=== PATIENT | female | born 1950 | race Caucasian/White ===

== ENCOUNTER → 2021-05-24 | Outpatient (CLI) | payer MEDICARE, OTHER ==
--- NOTE | 2021-05-24 17:33 | Diagnostic Imaging Report ---
INDICATION: Low back pain. TIME OF EXAM: 2:52 PM Three views of the lumbar spine were obtained. Curvature and alignment is normal. Vertebral body heights are maintained. No acute compression fracture is seen. There is some generalized degenerative disc disease with variable disc space narrowing and marginal spurring. There appears to be lower lumbar facet arthropathy. IMPRESSION: Lumbar spondylosis. No acute bony abnormality is detected. Dictated by: Dictated on workstation # [id number]
== END ==
LOC: ORTHO 13:45
PROVIDERS: ATTEND Orthopaedic Surgery
DX: M47.816 Spondylosis without myelopathy or radiculopathy, lumbar region (principal)
CPT/HCPCS: 20610; 72100; G0463

== ENCOUNTER → 2021-10-20 | Outpatient (CLI) | payer MEDICARE, OTHER | LOC: ORTHO 10:48 | PROVIDERS: ATTEND Orthopaedic Surgery | DX: M17.12 Unilateral primary osteoarthritis, left knee (principal) | CPT/HCPCS: 20610 ==

== ENCOUNTER → 2022-02-21 | Outpatient (CLI) | payer MEDICARE, OTHER ==
--- NOTE | 2022-02-21 09:27 | Diagnostic Imaging Report ---
INDICATION: Bilateral hip pain. TIME OF EXAM: 9:12 AM. TECHNIQUE: An AP view of the pelvis and two views of each hip were obtained. FINDINGS: The femoroacetabular alignment appears to be normal bilaterally. The joint spaces are well-maintained. Both femoral heads and necks are intact. The rami are intact. No fractures are seen. IMPRESSION: No acute abnormality is detected. Dictated by: Dictated on workstation # [id number]
== END ==
LOC: ORTHO 08:51
PROVIDERS: ATTEND Orthopaedic Surgery
DX: M25.551 Pain in right hip (principal); M25.552 Pain in left hip
CPT/HCPCS: 73523; G0463; 99213

== ENCOUNTER → 2022-03-09 | Outpatient (CLI) | payer MEDICARE, OTHER ==
--- NOTE | 2022-03-09 14:12 | Diagnostic Imaging Report ---
Clinical indications: With joint pain. Patient has stiffness when walking and low back pain. Patient has history of nasopharyngeal cancer. EXAM: MRI of the lumbar spine performed without IV contrast. Sequences include sagittal T2, sagittal T1, sagittal T2 fat-sat, coronal T2, and axial T2. There is no acute lumbar spine fracture or dislocation. 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 There are small spurs involving the lumbar spine anteriorly. The visualized portions of the distal thoracic spinal cord, conus medullaris, and cauda equina nerve roots are unremarkable. The conus medullaris tip is seen at the upper L2 vertebral body level. There is no significant paraspinal soft tissue abnormality. Prominent bilateral renal pelvis noted with normal diameter ureters. There also appear to be possible left parapelvic cyst. There is a 12 mm circumscribed low T2 signal area involving the inferior aspect right kidney which is indeterminate. T12-L1 and L1-L2: Unremarkable. L2-L3: There is mild left facet arthropathy. There is no significant central spinal canal or neural foramen narrowing. L3-L4: There is a mild diffuse disk bulge with mild loss of disk space height posteriorly. There is moderate bilateral facet arthropathy. There is no significant central canal stenosis. There is mild right neural foramen narrowing and no significant left neural foramen narrowing. L4-L5: There is diffuse disk bulge with mild to moderate loss of disk space height most pronounced posteriorly. There is moderate bilateral facet arthropathy. There is mild central canal stenosis, and mild to moderate bilateral neural foramen narrowing. L5-S1: There is a mild diffuse disk bulge and a moderate loss of disk space height posteriorly. There is severe right facet arthropathy/hypertrophy and mild left facet arthropathy. There is no significant central canal stenosis or neural foramen narrowing. IMPRESSION: 1: There is no acute lumbar spine fracture or dislocation. 2: There is mild to moderate lumbar spine degenerative disease most pronounced at the L4-L5 level. There is no major central canal stenosis. There is mild to moderate bilateral neural foramen narrowing. 3: There is a 12 mm circumscribed low T2 signal area involving the inferior aspect the right kidney which is indeterminate. Renal ultrasound is suggested for further evaluation. 4: There is prominence of the bilateral renal pelvis disease with normal sized ureters which may be related to prominent extrarenal pelvis or component of UPJ obstruction (right side more than the left). This also would be better evaluated with renal ultrasound. Dictated by: Dictated on workstation # [id number]
== END ==
LOC: RAD 08:45
PROVIDERS: ATTEND Orthopaedic Surgery
DX: M47.896 Other spondylosis, lumbar region (principal); M48.061 Spinal stenosis, lumbar region without neurogenic claudication; N28.9 Disorder of kidney and ureter, unspecified
CPT/HCPCS: 72148

== ENCOUNTER → 2022-04-20 | Outpatient (CLI) | payer MEDICARE, OTHER ==
--- NOTE | 2022-04-20 17:40 | Diagnostic Imaging Report ---
INDICATION: Bilateral knee pain. EXAMINATION: AP, lateral and oblique and sunrise views of both knees were obtained. No fracture or acute bony abnormality is seen. On the left side, there is marked medial joint space narrowing with subchondral sclerosis and osteophyte formation. The lateral compartment appears preserved. There is moderate patellofemoral spurring and joint space narrowing. On the right side, there is moderate medial joint space narrowing with osteophyte formation. Lateral compartment appears preserved. Patellofemoral compartment appears preserved. IMPRESSION: Degenerative findings of both knees, left worse than right, findings are most prominent in the medial compartments. No acute abnormality. Dictated by: Dictated on workstation # [id number]
== END ==
LOC: ORTHO 11:21
PROVIDERS: ATTEND Orthopaedic Surgery
DX: M17.0 Bilateral primary osteoarthritis of knee (principal)
CPT/HCPCS: 73564; G0463; 99213

== ENCOUNTER → 2022-07-19 | Outpatient (CLI) | payer MEDICARE, OTHER | LOC: ORTHO 08:58 | PROVIDERS: ATTEND Orthopaedic Surgery | DX: M17.0 Bilateral primary osteoarthritis of knee (principal) ==

== ENCOUNTER → 2022-10-19 | Outpatient (CLI) | payer MEDICARE, OTHER | LOC: ORTHO 11:26 | PROVIDERS: ATTEND Orthopaedic Surgery | DX: M17.0 Bilateral primary osteoarthritis of knee (principal) | CPT/HCPCS: 20610 ==

== ENCOUNTER 2022-11-07 11:59 | Outpatient (CLI) | payer MEDICARE, OTHER ==
[~2022-11-07] VITALS: Ht 165.1 cm; Wt 71.6 kg
--- NOTE | 2022-11-07 13:37 | Diagnostic Imaging Report ---
CLINICAL INDICATION: Preop testing. EXAM: Chest x-ray PA and lateral views. COMPARISON: None. FINDINGS: Lungs/pleura: There is minimal atelectasis and/or scarring involving both lung bases. Lungs are clear. There is no pneumothorax. There is no pleural effusion. Mediastinum: There are calcified lymph nodes in the mediastinal region.. Pulmonary vasculature: Unremarkable. Heart: Unremarkable. Bones/extrathoracic soft tissue: There are hypertrophic spurs involving the thoracic spine. There is extensive kyphosis of the thoracic spine. IMPRESSION: There is no radiographic evidence of acute cardiopulmonary process. There is minimal bibasilar atelectasis or scarring. Dictated by: Dictated on workstation # [id number]
[2022-11-07] MEDS ORDERED: CLOT15CR6 TP (16:13)
[2022-11-07] MEDS ORDERED: FOLI0.4T6 PO (16:13)
[2022-11-07] MEDS ORDERED: VITAMIN B COMP PO (16:13)
[2022-11-07] MEDS ORDERED: ACET325C7 PO (16:13)
[2022-11-07] MEDS ORDERED: D-MA500C PO (16:13)
[2022-11-07] MEDS ORDERED: VITA100C23 PO (16:13)
[2022-11-07] MEDS ORDERED: MUPI15CR11 TP (16:13)
[2022-11-07] MEDS ORDERED: LEVO75CA5 PO (16:13)
[2022-11-07] MEDS ORDERED: CALC1CAP9 PO (16:13)
[2022-11-07] MEDS ORDERED: ASCO100025 PO (16:13)
[2022-11-07] MEDS ORDERED: OMEP40CA6 PO (16:13)
[2022-11-07] MEDS ORDERED: MULT-568 PO (16:13)
[2022-11-07] MEDS ORDERED: TURM500T PO (16:13)
[2022-11-07] MEDS ORDERED: LACT1CAP74 PO (16:13)
[2022-11-07] MEDS ORDERED: CHOL500049 PO (16:13)
[2022-11-07] MEDS ORDERED: KETO15CR2 TP (16:13)
[2022-11-07] MEDS ORDERED: ACHD5005 PO (16:13)
[2022-11-07] MEDS ORDERED: CART1TAB4 PO (16:13)
[2022-11-07] MEDS ORDERED: SODI100P15 DT (16:13)
[2022-11-07] MEDS ORDERED: MAGN200T8 PO (16:13)
== END 2022-11-07 16:15 ==
LOC: PREOP 11:59
PROVIDERS: ATTEND Orthopaedic Surgery
DX: Z01.818 Encounter for other preprocedural examination (principal); M17.12 Unilateral primary osteoarthritis, left knee
CPT/HCPCS: 71046; 93005

== ENCOUNTER → 2022-11-07 | Outpatient (CLI) | payer MEDICARE, OTHER ==
[~2022-11-07] MED LIST: ACET325C7 PO; ACHD5005 PO; ASCO100025 PO; CALC1CAP9 PO; CART1TAB4 PO; CHOL500049 PO; CLOT15CR6 TP; D-MA500C PO; FOLI0.4T6 PO; KETO15CR2 TP; LACT1CAP74 PO; LEVO75CA5 PO; MAGN200T8 PO; MULT-568 PO; MUPI15CR11 TP; OMEP40CA6 PO; SODI100P15 DT; TURM500T PO; VITA100C23 PO; VITAMIN B COMP PO
[2022-11-07 11:55] LABS: BILIRUBIN,URINE NEGATIVE (NEGATIVE); CLARITY,URINE CLEAR; COLOR,URINE YELLOW; GLUCOSE, URINE (UA) NEGATIVE (NEGATIVE); KETONES,URINE NEGATIVE (NEGATIVE); LEUKOCYTE ESTERASE ,URINE TRACE (NEGATIVE); NITRITE,URINE NEGATIVE (NEGATIVE); PH,URINE 7.5 (5-9); PROTEIN,URINE NEGATIVE (NEGATIVE)
[2022-11-07 12:03] LABS: RBC,URINE RARE /HPF
[2022-11-07 12:04] LABS: BACTERIA,URINE TRACE /HPF; HYALINE CASTS, URINE RARE /LPF; SQUAMOUS EPITHELIAL CELL,UR 0-2 /HPF; WBC,URINE 0-2 /HPF
[2022-11-07 12:17] LABS: POTASSIUM 3.9 MMOL/L (3.6-5.0)
--- NOTE | 2022-11-07 13:36 | Diagnostic Imaging Report ---
PROCEDURE: CT left lower extremity without contrast. TECHNIQUE: Multiple contiguous axial images were obtained through the left lower extremity without the use of intravenous contrast. Sagittal and coronal reformations were then performed. Auto Exposure Controls were utilized during the CT exam to meet ALARA standards for radiation dose reduction. INDICATION: Left knee pain COMPARISON: Radiograph from 04/20/2022 FINDINGS: No acute fracture is seen in the left knee. Alignment appears normal. There is severe degenerative change in the medial compartment and in the patellofemoral compartment. There are mild degenerative changes in the lateral compartment. There is a small left knee joint effusion. No muscular atrophy is seen. No acute abnormalities seen in the left ankle. No acute abnormalities seen in the left hip. IMPRESSION: 1. Tricompartmental degenerative changes in the left knee, most pronounced in the medial and patellofemoral compartments. 2. Small left knee joint effusion. Dictated by: Dictated on workstation # [id number]
== END ==
LOC: RAD 11:28
PROVIDERS: ATTEND Orthopaedic Surgery
DX: Z01.89 Encounter for other specified special examinations (principal); M17.0 Bilateral primary osteoarthritis of knee
CPT/HCPCS: 36415; 71046; 73700; 80048; 81000

== ENCOUNTER → 2022-11-07 | Outpatient (CLI) | payer MEDICARE, OTHER | LOC: ORTHO 10:58 | PROVIDERS: ATTEND Orthopaedic Surgery | DX: M17.0 Bilateral primary osteoarthritis of knee (principal) ==

== ENCOUNTER 2022-11-20 06:24 | Day surgery (SDC) | payer MEDICARE, OTHER ==
[2022-11-20] VITALS (10 sets, daily range): BP systolic 133–155; BP diastolic 63–93
[~2022-11-20] VITALS: Ht 165.1 cm; Wt 71.6 kg
[2022-11-20] MEDS ORDERED: ROPIVACAINE 5MG/ML 30ML VIAL ONE (06:43)
[2022-11-20] MEDS ORDERED: LIDOCAINE PF 2% 5 ML (XYLOCAINE) VIAL ONE (06:44)
[2022-11-20] MEDS ORDERED: MIDAZOLAM 2 MG/2 ML (VERSED) VIAL ONE (06:44)
[2022-11-20] MEDS: LACTATED RINGERS 1,000 ML IV PRN ×2 (06:57→09:45)
[2022-11-20] MEDS ORDERED: CLINDAMYCIN 600 MG/50 ML IVPB 50 ML IV ONE ×2 (07:00→07:03)
--- NOTE | 2022-11-20 07:13 | Progress Note-Pre Operative ---
Pre-Operative Progress Note Date of Available H&P: Nov 07, 2022 Date H&P Reviewed: Nov 20, 2022 Time H&P Reviewed: 07:05 History & Physical: H&P Reviewed, Patient Examed, No changes noted Pre-Operative Diagnosis: Left Knee Primary Osteoarthritis ROBBIE KLEIN MD Nov 20, 2022 07:13
[2022-11-20] MEDS ORDERED: CATHETER FLUSH 10 ML SYR IVP PRN (07:15)
[2022-11-20] MEDS ORDERED: fentaNYL INJ 100 MCG/2 ML AMP ONE (07:52)
[2022-11-20] MEDS ORDERED: proPOfol 200 MG/20 ML (DIPRIVAN) VIAL IV ONE (07:52)
[2022-11-20] MEDS ORDERED: KETOROLAC 30 MG/ML VIAL ONE (10:41)
[2022-11-20] MEDS ORDERED: SEVOFLURANE (ULTANE) 15 ML INHAL SOLN ONE (10:42)
[2022-11-20] MEDS ORDERED: ONDANSETRON 4 MG/2 ML (SDV) Z0FRAN ONE (10:48)
--- NOTE | 2022-11-20 10:57 | Operative Report - Ortho ---
Operative Report Surgeon (s)/Client Program Manager (s) Surgeon ROBBIE KLEIN MD Client Program Manager n/a Pre-Operative Diagnosis Left Knee Primary Osteoarthritis Post-Operative Diagnosis same Operative Report Date of Procedure: Nov 20, 2022 Name of Procedure Performed: Robotic Assisted Left Total Knee Arthroplasty Description & Findings After obtaining informed consent and marking the patient in the preoperative holding area, the patient did receive IV antibiotics. Patient was taken to the operating room and anesthesia was induced. Surgical timeout was taken. The left lower extremity was prepped and draped in the usual sterile fashion. Incision was made and carried down to fascia. Arthrotomy was performed on the medial side of the patella. Patella was retracted laterally and knee was flexed. Found to have circumferential osteophtye around the distal femur as well as exposed bone in the medial compartment. ACL and anterior horns of the menisci were removed. 3.2 mm pins were placed in the medial femoral condyle for the femoral array and checkpoint was placed next to the pins. 3.2 mm pins were placed in the proximal tibia and checkpoint was placed there as well. Arrays were placed and tightened into position. The femur and tibia were then registered. Osteophytes were removed. The knee was then tensioned with varus and valgus stress in extension and flexion. Measurements were captured and adjustments were made to the preoperative plan to balance the flexion and extension gaps at 19 mm. Robotic arm was brought into position and all femoral cuts as well as the tibial cut were performed. Bone blocks were removed. Lamina locator was placed and the remainder of the mensici as well as posterior osteophytes were removed. The knee was trialed with a size 2 femur and a size 2 tibia with a 9 mm poly trial. It was found to come out to full extension and flexed beyond 120 degrees. It was stable to varus and valgus stress throughout its range of motion. This was accepted. Knee was brought out into extension and the patella was measured at less than 20 mm of thickness. Osteophytes were removed from around the perimeter of the patella. Patella tracked well through the trochlear groove of the femur. Lug holes were drilled in the distal femur. Trial implants were removed. Tibial tray was pinned and punched. Tibial press fit guide was placed and holes were drilled. The cut bone surfaces were lavaged with pulsatile normal saline. Implants were opened and assembled on the back table. A size 2 press fit tibial component was impacted into place. A size 2 press fit femoral component was impacted into place. Tibial tray was lavaged with saline. A 9 mm thick polyethylene component was locked into placed and the locking mechanism was checked. Knee was brought into extension. Betadine soak was performed and then, the knee was irrigated with normal saline. The knee was once again trialed; found to come to full extension, flexed beyond 120 degrees, and was stable to varus and valgus stress. Tourniquet was dropped and electrocautery was used for hemostasis. Fascial layer was closed with #2 Stratafix. The subcutaneous layer was closed with 2-0 Vicryl. The skin was closed with adriana. Wound was dressed with xeroform, 4x4s, ABD, webril, and USMAN wrap. Patient tolerated the procedure well and was stable to the recovery room. Anesthesia Type General Estimated Blood Loss 150 mL Specimen(s) collected/removed None ROBBIE KLEIN MD Nov 20, 2022 10:57
[2022-11-20] MEDS ORDERED: KETOCONAZOLE 2% CREAM 15 GM (NIZORAL) TP SCH (11:00)
[2022-11-20] MEDS ORDERED: BISACODYL 5 MG (DULCOLAX) TABLET PO PRN (11:00)
[2022-11-20] MEDS ORDERED: ACETAMINOPHEN 500 MG TAB (TYLENOL) PO PRN (11:00)
[2022-11-20] MEDS ORDERED: MUPIROCIN CALCIUM 15 GM TP SCH (11:00)
[2022-11-20] MEDS ORDERED: BETAMETHASONE/CLOTRIM CREAM (LOTRISONE) 45 GM TP SCH (11:00)
[2022-11-20] MEDS ORDERED: MILK OF MAGNESIA 400 MG/5 ML 30 ML UDC PO PRN (11:00)
[2022-11-20] MEDS ORDERED: morphine INJ 10 MG/ML 1ML (SYR OR VIAL) ONE (11:04)
[2022-11-20] MEDS ORDERED: HYDROmorphone 2 MG/ML VIAL (DILAUDID) IV ONE (11:15)
[2022-11-20] MEDS ORDERED: morphine INJ 10 MG/ML 1ML (SYR OR VIAL) IVP ONE (11:15)
--- NOTE | 2022-11-20 11:22 | Diagnostic Imaging Report ---
INDICATION: Left knee pain. FINDINGS: Two views of the left knee show postop changes from joint arthroplasty. There is no evidence of loosening or periprosthetic fracture. IMPRESSION: Good alignment of the left knee following joint arthroplasty. Dictated by: Dictated on workstation # [id number]
[2022-11-20] MEDS: morphine INJ 4 MG/ML 1 ML (VIAL/SYRINGE) IVP PRN (12:35)
[2022-11-20] MEDS: NS IV 1000 ML 1,000 ML IV SCH ×2 (12:43→20:43)
--- NOTE | 2022-11-20 13:55 | Physical Therapy Evaluation ---
PT Evaluation-General Medical Diagnosis Admission Date Nov 20, 2022 at 11:40 Medical Diagnosis: left TKR Onset Date: Nov 20, 2022 Therapy Diagnosis Therapy Diagnosis: debility/weakness Precautions Precautions/Isolations: Fall Prevention, Standard Precautions Weight Bear Status Right Lower Extremity: Right Full Weight Bearing Left Lower Extremity: Left Weight Bearing/Tolerated Referral Physician: Alvin Reason for Referral: Evaluation/Treatment Medical History Pertinent Medical History: OA Current History s/p elective left TKR Reviewed History: Yes Social History Home: Single Level Current Living Status: Spouse Entry Into Home: Stairs With Railing PT Steps Into Home: 3 Prior Prior Level of Function SCALE: Activities may be completed with or without assistive devices. 5-Dseivbjhtx-busmkyi completes the activity by him/herself with no assistance from a helper. 5-Set-up or Clean-up Assistance-helper sets up or cleans up; patient completes activity. [place] assists only prior to or following the activity. 4-Supervision or Touching Assistance-helper provides verbal cues and/or touching/steadying and/or contact guard assistance as patient completes activity. Assistance may be provided throughout the activity or intermittently. 3-Partial/Moderate Assistance-helper does LESS THAN HALF the effort. [place] lifts, holds or supports trunk or limbs, but provides less than half the effort. 2-Substantial/Maximal Assistance-helper does MORE THAN HALF the effort. [place] lifts or holds trunk or limbs and provides more than half the effort. 8-Azwwceniq-owsymb does ALL the effort. Patient does none of the effort to complete the activity. Or, the assistance of 2 or more helpers is required for the patient to complete the activity. If activity was not attempted, code reason: 7-Patient Refused. 9-Not Applicable-not attempted and the patient did not perform the activity before the current illness, exacerbation or injury. 10-Not Attempted due to Environmental Limitations-(lack of equipment, weather restraints, etc.). 88-Not Attempted due to Medical Conditions or Safety Concerns. Bed Mobility: 6 Transfers (B,C,W/C): 6 Gait: 6 Stairs: 6 Indoor Mobility (Ambulation): Independent Stairs: Independent Prior Devices Use: Other-see list below Prior Device Use: cane PT Evaluation-Current Subjective Patient agrees to PT. Pain Numeric Pain Scale: 5-Moderate Pain Location: Left Location Body Site: Knee Pain Description: Acute Objective Patient Orientation: Normal For Age Attachments: Mejía Catheter, Polar Pack, IV ROM/Strength ROM Lower Extremities left knee flexion 80 degrees/extension 10 degrees right LE WFL Strength Lower Extremities right LE 4/5 grossly/left LE 3/5 grossly Integumentary/Posture Bowel Incontinence: No Bladder Incontinence: Mejía Cath Posture kyphotic Neuromuscular (Tone, Coordination, Reflexes) grossly intact Sensory Vision: Wears Glasses Hearing: Hearing Aid/Aides Transfers Lying to Sitting/Side of Bed(Q: 4 Sit to Stand (QC): 4 Chair/Qrh-vo-Bmujo Xfer(QC): 4 Gait Mode of Locomotion: Walk Anticipated Mode of Locomotion: Walk Walk 10 feet (QC): 4 Walk 50 ft with 2 Turns(QC): 88 Walk 150 ft (QC): 88 Distance: 25' Gait Assistive Device: FWW Balance Sitting Static: Normal Sitting Dynamic: Normal Standing Static: Fair Standing Dynamic: Fair Assessment/Needs Patient will benefit from skilled PT to address functional strength and mobility to improve current LOF to safely return to home with spouse at maximum LOF. Rehab Potential: Fair PT Trace Evidence Technician Goals [facility] Goals PT [facility] Goals Time Frame: Dec 09, 2022 Roll Left & Right (QC): 6 Sit to Lying (QC): 6 Lying-Sitting on Side/Bed(QC): 6 Sit to Stand (QC): 6 Chair/Hbl-ah-Leokj Xfer(QC): 6 Toilet Transfer (QC): 6 Walk 10 feet (QC): 6 Walk 50ft with 2 Turns (QC): 6 Walk 150 ft (QC): 6 PT Plan Problem List Problem List: Activity Tolerance, Functional Strength, Safety, Balance, Gait, Transfer, Bed Mobility Treatment/Plan Treatment Plan: Continue Plan of Care Treatment Plan: Bed Mobility, Education, Functional Activity Nilsa, Functional Strength, Gait, Safety, Therapeutic Exercise, Transfers Treatment Duration: Dec 09, 2022 Frequency: 11 times per week Estimated Hrs Per Day: .5 hour per day Time Time In: 1325 Time Out: 1340 DATE: Nov 20, 2022 Total Billed Treatment Time: 15 Total Billed Treatment 1 visit EVMod 15 min IRENE SUAREZ PT Nov 20, 2022 13:55
[2022-11-20] MEDS: ASPIRIN E.C. 81 MG (ECOTRIN) TAB PO SCH (17:14)
[2022-11-20] MEDS: CLINDAMYCIN 600 MG/50 ML IVPB 50 ML IV SCH ×2 (17:19→23:06)
[2022-11-20] MEDS: HYDROcodone/APAP 7.5 MG/325 MG (LORTAB, LORCET PLUS) TABLET PO PRN ×2 (17:21→22:01)
[2022-11-20] MEDS: ONDANSETRON 4 MG/2 ML (SDV) Z0FRAN IV PRN (17:35)
[2022-11-20] MEDS: DOCUSATE SODIUM 100 MG (COLACE) CAP PO SCH (20:43)
[2022-11-21] VITALS (8 sets, daily range): BP systolic 109–145; BP diastolic 57–86
[2022-11-21] MEDS: HYDROcodone/APAP 7.5 MG/325 MG (LORTAB, LORCET PLUS) TABLET PO PRN ×5 (03:17→22:21)
[2022-11-21] MEDS: morphine INJ 4 MG/ML 1 ML (VIAL/SYRINGE) IVP PRN (04:44)
[2022-11-21] MEDS: LEVOTHYROXINE 75 MCG (LEVOTHROID) TABLET PO SCH (04:45)
[2022-11-21 05:55] LABS: HEMOGLOBIN 11.8 g/dL (11.5-16.0)
[2022-11-21] MEDS: MULTIVIT W/MINERALS TAB (THERAGRAN M) PO SCH (06:37)
[2022-11-21] MEDS: ASPIRIN E.C. 81 MG (ECOTRIN) TAB PO SCH ×2 (08:10→18:22)
[2022-11-21] MEDS: PANTOPRAZOLE 40 MG (PROTONIX) TAB PO SCH (08:10)
[2022-11-21] MEDS: ONDANSETRON 4 MG/2 ML (SDV) Z0FRAN IV PRN (08:10)
[2022-11-21] MEDS: DOCUSATE SODIUM 100 MG (COLACE) CAP PO SCH ×2 (08:10→20:03)
[2022-11-21] MEDS ORDERED: NON-FORMULARY MEDICATION 1 EA EA (Omeprazole 40 MG) PO SCH (09:00)
[2022-11-21] MEDS ORDERED: NON-FORMULARY MEDICATION 1 EA EA (Levothyroxine Sodium (Levothyroxine) 75 MCG) PO SCH (09:00)
--- NOTE | 2022-11-21 09:13 | Anesthesia-General Post-Op ---
General Patient Condition Mental Status/LOC: Same as Preop Cardiovascular: Satisfactory Nausea/Vomiting: Absent Respiratory: Satisfactory Pain: Controlled Complications: Absent Post Op Complications Complications None Follow Up Care/Instructions Patient Instructions None needed. Anesthesia/Patient Condition Patient Condition Patient is doing well, no complaints, stable vital signs, no apparent adverse anesthesia problems. No complications reported per nursing. LIDYA PÉREZ CRNA Nov 21, 2022 09:13
--- NOTE | 2022-11-21 10:15 | Physical Therapy Daily Note ---
PT Daily Note-Current Subjective Patient agrees to PT. Pain Numeric Pain Scale: 10-Worst Possible Pain Location: Left Location Body Site: Knee Pain Description: Acute Comment: with pain medication issued Section J - Health Conditions 1. Rarely or not at all 2. Occasionally 3. Frequently 4. Almost constantly 8. Unable to answer Pain Effect on Sleep: 3 Pain Interference with Therapy: 3 Pain Interference w/Day-to-Day: 3 Mental Status Patient Orientation: Normal For Age Transfers SCALE: Activities may be completed with or without assistive devices. 5-Tsuolircna-yldbejn completes the activity by him/herself with no assistance from a helper. 5-Set-up or Clean-up Assistance-helper sets up or cleans up; patient completes activity. [place] assists only prior to or following the activity. 4-Supervision or Touching Assistance-helper provides verbal cues and/or touching/steadying and/or contact guard assistance as patient completes activity. Assistance may be provided throughout the activity or intermittently. 3-Partial/Moderate Assistance-helper does LESS THAN HALF the effort. [place] lifts, holds or supports trunk or limbs, but provides less than half the effort. 2-Substantial/Maximal Assistance-helper does MORE THAN HALF the effort. [place] lifts or holds trunk or limbs and provides more than half the effort. 4-Ffffbrsba-lfbzeg does ALL the effort. Patient does none of the effort to complete the activity. Or, the assistance of 2 or more helpers is required for the patient to complete the activity. If activity was not attempted, code reason: 7-Patient Refused. 9-Not Applicable-not attempted and the patient did not perform the activity before the current illness, exacerbation or injury. 10-Not Attempted due to Environmental Limitations-(lack of equipment, weather restraints, etc.). 88-Not Attempted due to Medical Conditions or Safety Concerns. Lying to Sitting/Side of Bed(Q: 3 Sit to Stand (QC): 3 Chair/Uiw-rk-Izssa Xfer(QC): 3 Weight Bearing Right Lower Extremity: Right Full Weight Bearing Left Lower Extremity: Left Weight Bearing/Tolerated Gait Training Distance: 15' Walk 10 feet (QC): 3 Walk 50 ft with 2 Turns(QC): 7 Walk 150 ft (QC): 7 Gait Assistive Device: FWW very slow, antalgic, minimal weight bearing left LE Exercises Supine Ex: Ankle pumps, Quad Set, Heel Slides, Straight leg raise Supine Reps: 15 (AAROM left LE) Seated Therapy Exercises: Long arc quads Seated Reps: 15 (AAROM left LE) Assessment Patient tolerates minimal activity and requires time to complete all functional tasks due to uncontrolled left knee pain. RN notified. PT to increase activity as tolerated/allowed by patient. Patient current left knee AROM 5-20 degrees with patient resisting AAROM. PT Health Diagnostics Teacher Goals [facility] Goals PT [facility] Goals Time Frame: Dec 09, 2022 Roll Left & Right (QC): 6 Sit to Lying (QC): 6 Lying-Sitting on Side/Bed(QC): 6 Sit to Stand (QC): 6 Chair/Zqb-yl-Kdsxr Xfer(QC): 6 Toilet Transfer (QC): 6 Walk 10 feet (QC): 6 Walk 50ft with 2 Turns (QC): 6 Walk 150 ft (QC): 6 PT Plan Treatment/Plan Treatment Plan: Continue Plan of Care Treatment Plan: Bed Mobility, Education, Functional Activity Nilsa, Functional Strength, Gait, Safety, Therapeutic Exercise, Transfers Treatment Duration: Dec 09, 2022 Frequency: 11 times per week Estimated Hrs Per Day: .5 hour per day Time Time In: 916 Time Out: 940 DATE: Nov 21, 2022 Total Billed Treatment Time: 24 Total Billed Treatment 1 visit EX 14 min GT 10 min IRENE SUAREZ PT Nov 21, 2022 10:15
--- NOTE | 2022-11-21 11:25 | Occupational Therapy Eval ---
OT Evaluation-General/PLF Medical Diagnosis Admission Date Nov 20, 2022 at 11:40 Medical Diagnosis: left TKR Onset Date: Nov 20, 2022 Therapy Diagnosis Therapy Diagnosis: s/p LTKA Precautions Precautions/Isolations: Standard Precautions Weight Bear Status Weight Bearing Restriction: Weight Bearing/Tolerated Location Restriction: L LE Referral Physician: Alvin Referral Reason: Self Care, Evaluation/Treatment Medical History Pertinent Medical History: OA Reviewed History: Yes Social History Home: Single Level Current Living Status: Spouse Entry Into Home: Stairs With Railing Steps Into Home: 3 ADL-Prior Level of Function SCALE: Activities may be completed with or without assistive devices. 9-Aikvkytojl-txswdbn completes the activity by him/herself with no assistance from a helper. 5-Set-up or Clean-up Assistance-helper sets up or cleans up; patient completes activity. [place] assists only prior to or following the activity. 4-Supervision or Touching Assistance-helper provides verbal cues and/or touching/steadying and/or contact guard assistance as patient completes activity. Assistance may be provided throughout the activity or intermittently. 3-Partial/Moderate Assistance-helper does LESS THAN HALF the effort. [place] lifts, holds or supports trunk or limbs, but provides less than half the effort. 2-Substantial/Maximal Assistance-helper does MORE THAN HALF the effort. [place] lifts or holds trunk or limbs and provides more than half the effort. 5-Kdbmcymcp-rgrokm does ALL the effort. Patient does none of the effort to complete the activity. Or, the assistance of 2 or more helpers is required for the patient to complete the activity. If activity was not attempted, code reason: 7-Patient Refused. 9-Not Applicable-not attempted and the patient did not perform the activity before the current illness, exacerbation or injury. 10-Not Attempted due to Environmental Limitations-(lack of equipment, weather restraints, etc.). 88-Not Attempted due to Medical Conditions or Safety Concerns. Self Care: Independent Functional Cognition: Independent Drive Self: Yes OT Current Status Subjective UP in recliner c/o knee munoz popst physical therapy Mental Status/Objective Patient Orientation: Person, Place, Time, Situation Current Glasses/Contacts: No Hearing Aids: No Upper Extremity ROM BUE ROM WFLS Upper Extremity Coordination INTACT Upper Extremity Sensation INTACT Upper Extremity Strength BUE WFLS ADL-Treatment ADL-Current * PATIENT STRUGGLES W/ PROBLEM SOLVING OF HOW TO PERFORM TASK WITHOUT KNEE FLEXION AND INCREASED PAIN, OT PROVIDED VERBAL EDUCATION FOR SEQUENCES AND STRATEGIES. Eating (QC): 6 Oral Hygiene (QC): 5 Shower/Bathe Self (QC): 88 Upper Body Dressing (QC): 5 Lower Body Dressing (QC): 4 On/Off Footwear (QC): 4 Toileting Hygiene (QC): 5 Education OT Patient Education: Correct positioning, Energy conservation, Modified ADL techniques, Progress toward Goal/Update tx plan, Purpose of tx/functional activities, Reviewed precautions, Rehab process, Safety issues, Transfer techniques, Use of adapted equipment Teaching Recipient: Patient Teaching Methods: Demonstration, Discussion Response to Teaching: Reinforcement Needed OT [facility] Goals [facility] Goals Oral Hygiene (QC): 6 Toileting Hygiene (QC): 6 Shower/Bathe Self (QC): 5 Upper Body Dressing (QC): 6 Lower Body Dressing (QC): 6 On/Off Footwear (QC): 6 1=Demonstrate adherence to instructed precautions during ADL tasks. 2=Patient will verbalize/demonstrate understanding of assistive devices/modifications for ADL. 3=Patient will improve strength/tolerance for activity to enable patient to perform ADL's. OT Education/Plan Problem List/Assessment Assessment: Decreased Activ Tolerance, Impaired Self-Care Skills Discharge Recommendations Plan/Recommendations: Continue POC Treatment Plan/Plan of Care Treatment,Training & Education: Yes Patient would benefit from OT for education, treatment and training to promote independence in ADL's, mobility, safety and/or upper extremity function for ADL's. Plan of Care: ADL Retraining, Functional Mobility, UE Funct Exercise/Act Treatment Duration: Nov 25, 2022 Frequency: 3 times per week (3-5 TIMES PER WEEK) Estimated Hrs Per Day: .25 hour per day Rehab Potential: Good SET UP FOR SPONGE BATHE WITH BATH CLOTHES AND OWN GOWN Time Start Time: 10:10 Stop Time: 10:26 DATE: Nov 21, 2022 Total Time Billed (hr/min): 16 Billed Treatment Time EVM 16 MIN REVA HARRY OT Nov 21, 2022 11:25
--- NOTE | 2022-11-21 13:15 | Progress Note - Ortho ---
Progress Note Subjective Date of Exam 11/21/22 Chief Complaint POD #1 L TKA HPI/Events since last exam nausea yesterday, some difficulty with pain control, able to do some in room therapy yesterday Review of Systems - Allergies: Coded Allergies: cephalexin (Verified Allergy, Unknown, diarrhea, 11/07/22) Home Meds Reported Medications Vitamin K2 (Vitamin K2) 100 Mcg Capsule, 100 MCG PO DAILY, CAP 11/07/22 Cholecalciferol (Vitamin D3) (Vitamin D3) 1,250 Mcg (67190 Unit) Capsule, PO DAILY, CAP 11/07/22 [vitamin b comp liq] Unknown Strength No Conflict Check, 1 ML PO DAILY 11/07/22 Acetaminophen (Tylenol) Unknown Strength Capsule, PO UD, CAP 11/07/22 Turmeric Root Extract (Turmeric) 500 Mg Tablet, 500 MG PO TID, TAB 11/07/22 Lactobacillus Combination No.4 (Probiotic) Unknown Strength Capsule, PO BID, CAP 11/07/22 Sodium Fluoride (Prevident) 1.1 % Sodium Fluoride Paste..ml., 100 ML DT BID, EA 11/07/22 Omeprazole (Omeprazole) 40 Mg Capsule.dr, 40 MG PO DAILY, CAP 11/07/22 Cartilage/Collagen/Bor/Hyalur (Move Free Ultra Tablet) 40 Mg-5 Mg-3.3 Mg Tablet, 1 EACH PO DAILY, TAB 11/07/22 Magnesium Oxide (Mag-Oxide) Unknown Strength Tablet, PO, TAB 11/07/22 Levothyroxine Sodium (Levothyroxine) 75 Mcg Capsule, 75 MCG PO DAILY, CAP 11/07/22 Ketoconazole (Ketoconazole) 2 % Cream..g., 15 GM TP UD, EA 11/07/22 Hydrocodone/Acetaminophen (Hydrocodone-Acetamin 5-325 mg) 5 Mg-325 Mg Tablet, 1 TAB PO TID PRN for PAIN-MODERATE (5-7), TAB 11/07/22 Ascorbic Acid (Vitamin C) 1,000 Mg Tablet.er, 1000 MG PO DAILY, TAB 11/07/22 Folic Acid (Folic Acid) Unknown Strength Tablet, PO, TAB 11/07/22 Calcium/Mag Oxide/Vitamin D3 (Coral Calcium 1,000 mg Cap) 185 Mg-50 Mg-100 Unit Capsule, 1 EACH PO BID, CAP 11/07/22 Clotrimazole/Betamethasone Dip (Clotrimazole-Betamethasone Crm) 1 %-0.05 % Cream..g., 15 GM TP UD, EA 11/07/22 Pediatric Multivitamin No.17 (Children's Chew Multivitamin) 1 Each Tab.chew, 1 EACH PO DAILY, TAB 11/07/22 D-Mannose (Azo D-Mannose) 500 Mg Capsule, 500 MG PO BID, CAP 11/07/22 Objective Exam L Knee: Dressing C/D/I, +DF of ankle, no s/s of DVT Vital Signs Vital Signs Date Time Temp Pulse Resp B/P (MAP) Pulse Ox O2 Delivery O2 Flow Rate FiO2 11/21/22 11:22 36.5 96 18 128/67 (87) 98 Room Air 11/21/22 08:02 36.4 96 18 122/59 (80) 93 Room Air 11/21/22 08:00 Room Air 11/21/22 03:54 36.4 85 16 114/67 (83) 95 Room Air 11/21/22 00:24 36.0 83 16 109/57 (74) 97 Room Air 11/20/22 20:45 Room Air 11/20/22 19:37 36.5 86 20 137/63 (87) 99 Room Air 11/20/22 17:44 Room Air 11/20/22 15:08 36.4 82 18 147/67 (93) 97 Room Air I & O 11/21/22 07:00 Intake Total 4230 ml Output Total 4050 ml Balance 180 ml Lab Results Laboratory Tests 11/21/22 05:00: Hemoglobin 11.8, Hematocrit 36 Microbiology 11/20/22 MRSA Screen - Final, Complete MRSA not isolated Imaging 2 postop views of the left knee dated 11/20/22 were reviewed from PACS and demonstrated postop TKA with components in good position, no complication Assessment and Plan Assessment Left Knee Primary Osteoarthritis s/p TKA Problem List Left Knee Primary Osteoarthritis s/p TKA Plan PT/OT DVT Prophylaxis Plan for home with home health therapy possible tomorrow Final Diagonsis Left Knee Primary Osteoarthritis s/p TKA Level of the visit: Level 3 (global postop) ROBBIE KLEIN MD Nov 21, 2022 13:15
--- NOTE | 2022-11-21 14:18 | Physical Therapy Daily Note ---
PT Daily Note-Current Subjective Patient states, "I have a high pain tolerance. My muscles just don't work since surgery." This PT reassures patient that all of her musculature is working due to visible muscle contraction and that pain is a limiting factor that has to be tolerated. This PT also educated patient on importance of taking pain medicat ion as it has been ordered to have adequate pain relief. Pain Section J - Health Conditions 1. Rarely or not at all 2. Occasionally 3. Frequently 4. Almost constantly 8. Unable to answer Pain Effect on Sleep: 3 Pain Interference with Therapy: 3 Pain Interference w/Day-to-Day: 3 Mental Status Patient Orientation: Normal For Age Transfers SCALE: Activities may be completed with or without assistive devices. 6-Ohttmdticp-hjnyakl completes the activity by him/herself with no assistance from a helper. 5-Set-up or Clean-up Assistance-helper sets up or cleans up; patient completes activity. [place] assists only prior to or following the activity. 4-Supervision or Touching Assistance-helper provides verbal cues and/or touching/steadying and/or contact guard assistance as patient completes activity. Assistance may be provided throughout the activity or intermittently. 3-Partial/Moderate Assistance-helper does LESS THAN HALF the effort. [place] lifts, holds or supports trunk or limbs, but provides less than half the effort. 2-Substantial/Maximal Assistance-helper does MORE THAN HALF the effort. [place] lifts or holds trunk or limbs and provides more than half the effort. 6-Bdnfjswld-izowmj does ALL the effort. Patient does none of the effort to complete the activity. Or, the assistance of 2 or more helpers is required for the patient to complete the activity. If activity was not attempted, code reason: 7-Patient Refused. 9-Not Applicable-not attempted and the patient did not perform the activity before the current illness, exacerbation or injury. 10-Not Attempted due to Environmental Limitations-(lack of equipment, weather restraints, etc.). 88-Not Attempted due to Medical Conditions or Safety Concerns. Lying to Sitting/Side of Bed(Q: 3 Sit to Stand (QC): 3 Toilet Transfer (QC): 3 Weight Bearing Right Lower Extremity: Right Full Weight Bearing Left Lower Extremity: Left Weight Bearing/Tolerated Gait Training Distance: 15' Walk 10 feet (QC): 4 Gait Assistive Device: FWW minimal to no left foot clearance with very slow, small step length [place] Exercises Supine Ex: Ankle pumps, Quad Set, Heel Slides (AAROM left), Straight leg raise (AAROM left) Supine Reps: 15 (patient is able to flex left knee ~30 degrees then resist PT assist with PT maintaining within patient's pain range) Assessment Patient requires time to complete all functional tasks. Patient continues to resist all left knee exercises due to pain. Patient, currently, displays ~30 degrees left knee flexion AAROM. Education on importance of actively performing exercises throughout the day to reach full rehab potential. Patient voices understanding. SW notified of PT concerns and lack of progress. PT Correction Goals Correction Goals PT Correction Goals Time Frame: Dec 09, 2022 Roll Left & Right (QC): 6 Sit to Lying (QC): 6 Lying-Sitting on Side/Bed(QC): 6 Sit to Stand (QC): 6 Chair/Ymh-dh-Tohoo Xfer(QC): 6 Toilet Transfer (QC): 6 Walk 10 feet (QC): 6 Walk 50ft with 2 Turns (QC): 6 Walk 150 ft (QC): 6 PT Plan Treatment/Plan Treatment Plan: Continue Plan of Care Treatment Plan: Bed Mobility, Education, Functional Activity Nilsa, Functional Strength, Gait, Safety, Therapeutic Exercise, Transfers Treatment Duration: Dec 09, 2022 Frequency: 11 times per week Estimated Hrs Per Day: .5 hour per day Time Time In: 1310 Time Out: 1333 DATE: Nov 21, 2022 Total Billed Treatment Time: 23 Total Billed Treatment 1 visit GT 8 min EX 15 min IRENE SUAREZ PT Nov 21, 2022 14:18
[2022-11-22 03:36] VITALS: BP 130/73
[2022-11-22 05:27] LABS: HEMOGLOBIN 11.9 g/dL (11.5-16.0)
[2022-11-22] MEDS: MULTIVIT W/MINERALS TAB (THERAGRAN M) PO SCH ×2 (05:39→05:40)
[2022-11-22] MEDS: LEVOTHYROXINE 75 MCG (LEVOTHROID) TABLET PO SCH (05:39)
[2022-11-22 07:44] VITALS: BP 116/58
[2022-11-22] MEDS: ASPIRIN E.C. 81 MG (ECOTRIN) TAB PO SCH ×2 (08:02→17:38)
[2022-11-22] MEDS: DOCUSATE SODIUM 100 MG (COLACE) CAP PO SCH ×2 (08:02→19:59)
[2022-11-22] MEDS: PANTOPRAZOLE 40 MG (PROTONIX) TAB PO SCH (08:02)
[2022-11-22] MEDS: HYDROcodone/APAP 7.5 MG/325 MG (LORTAB, LORCET PLUS) TABLET PO PRN ×3 (08:02→17:38)
--- NOTE | 2022-11-22 08:54 | Progress Note - Ortho ---
Progress Note Subjective Date of Exam 11/22/22 Chief Complaint POD #2 L TKA HPI/Events since last exam has only been up in room, no significant progress with PT, worried about muscle Review of Systems - Allergies: Coded Allergies: cephalexin (Verified Allergy, Unknown, diarrhea, 11/07/22) Home Meds Reported Medications Vitamin K2 (Vitamin K2) 100 Mcg Capsule, 100 MCG PO DAILY, CAP 11/07/22 Cholecalciferol (Vitamin D3) (Vitamin D3) 1,250 Mcg (98141 Unit) Capsule, PO DAILY, CAP 11/07/22 [vitamin b comp liq] Unknown Strength No Conflict Check, 1 ML PO DAILY 11/07/22 Acetaminophen (Tylenol) Unknown Strength Capsule, PO UD, CAP 11/07/22 Turmeric Root Extract (Turmeric) 500 Mg Tablet, 500 MG PO TID, TAB 11/07/22 Lactobacillus Combination No.4 (Probiotic) Unknown Strength Capsule, PO BID, CAP 11/07/22 Sodium Fluoride (Prevident) 1.1 % Sodium Fluoride Paste..ml., 100 ML DT BID, EA 11/07/22 Omeprazole (Omeprazole) 40 Mg Capsule.dr, 40 MG PO DAILY, CAP 11/07/22 Cartilage/Collagen/Bor/Hyalur (Move Free Ultra Tablet) 40 Mg-5 Mg-3.3 Mg Tablet, 1 EACH PO DAILY, TAB 11/07/22 Magnesium Oxide (Mag-Oxide) Unknown Strength Tablet, PO, TAB 11/07/22 Levothyroxine Sodium (Levothyroxine) 75 Mcg Capsule, 75 MCG PO DAILY, CAP 11/07/22 Ketoconazole (Ketoconazole) 2 % Cream..g., 15 GM TP UD, EA 11/07/22 Hydrocodone/Acetaminophen (Hydrocodone-Acetamin 5-325 mg) 5 Mg-325 Mg Tablet, 1 TAB PO TID PRN for PAIN-MODERATE (5-7), TAB 11/07/22 Ascorbic Acid (Vitamin C) 1,000 Mg Tablet.er, 1000 MG PO DAILY, TAB 11/07/22 Folic Acid (Folic Acid) Unknown Strength Tablet, PO, TAB 11/07/22 Calcium/Mag Oxide/Vitamin D3 (Coral Calcium 1,000 mg Cap) 185 Mg-50 Mg-100 Unit Capsule, 1 EACH PO BID, CAP 11/07/22 Clotrimazole/Betamethasone Dip (Clotrimazole-Betamethasone Crm) 1 %-0.05 % Cream..g., 15 GM TP UD, EA 11/07/22 Pediatric Multivitamin No.17 (Children's Chew Multivitamin) 1 Each Tab.chew, 1 EACH PO DAILY, TAB 11/07/22 D-Mannose (Azo D-Mannose) 500 Mg Capsule, 500 MG PO BID, CAP 11/07/22 Objective Exam L Knee: Incision with some mild drainage in lower portion, +DF of ankle, no s/s of DVT Vital Signs Vital Signs Date Time Temp Pulse Resp B/P (MAP) Pulse Ox O2 Delivery O2 Flow Rate FiO2 11/22/22 07:44 36.4 103 18 116/58 (77) 98 Room Air 11/22/22 03:36 36.4 79 18 130/73 (92) 98 Room Air 0.00 0.00 11/21/22 23:02 36.8 100 18 145/79 (101) 98 Room Air 0.00 0.00 11/21/22 21:38 36.9 107 20 134/86 (102) 97 Room Air 11/21/22 20:05 Room Air 11/21/22 19:48 37.5 111 18 119/71 (87) 97 Room Air 11/21/22 16:15 37.2 98 18 144/72 (96) 97 Room Air 11/21/22 11:22 36.5 96 18 128/67 (87) 98 Room Air I & O 11/22/22 07:00 Intake Total 860 ml Output Total 1050 ml Balance -190 ml Lab Results Laboratory Tests 11/22/22 05:05: Hemoglobin 11.9, Hematocrit 35 Microbiology 11/20/22 MRSA Screen - Final, Complete MRSA not isolated Assessment and Plan Assessment Left Knee Primary Osteoarthritis s/p TKA Problem List Left Knee Primary Osteoarthritis s/p TKA Plan Continue therapy efforts If not significant progress today, would recommend extended care (swing bed versus shelter) DVT Prophylaxis Final Diagonsis Left Knee Primary Osteoarthritis s/p TKA Level of the visit: Level 3 (postop global) ROBBIE KLEIN MD Nov 22, 2022 08:54
--- NOTE | 2022-11-22 09:58 | Physical Therapy Daily Note ---
PT Daily Note-Current Subjective Patient lying supine in bed upon PT arrival, agreeable to treatment. Rates pain at 3/10 currently in left knee Pain Section J - Health Conditions 1. Rarely or not at all 2. Occasionally 3. Frequently 4. Almost constantly 8. Unable to answer Pain Effect on Sleep: 2 Pain Interference with Therapy: 3 Pain Interference w/Day-to-Day: 3 Mental Status Patient Orientation: Person, Place, Time, Situation Transfers SCALE: Activities may be completed with or without assistive devices. 0-Zzuclacbkd-mlihuao completes the activity by him/herself with no assistance from a helper. 5-Set-up or Clean-up Assistance-helper sets up or cleans up; patient completes activity. [place] assists only prior to or following the activity. 4-Supervision or Touching Assistance-helper provides verbal cues and/or touchi ng/steadying and/or contact guard assistance as patient completes activity. Assistance may be provided throughout the activity or intermittently. 3-Partial/Moderate Assistance-helper does LESS THAN HALF the effort. [place] lifts, holds or supports trunk or limbs, but provides less than half the effort. 2-Substantial/Maximal Assistance-helper does MORE THAN HALF the effort. [place] lifts or holds trunk or limbs and provides more than half the effort. 0-Ndaeminsg-hvfwea does ALL the effort. Patient does none of the effort to complete the activity. Or, the assistance of 2 or more helpers is required for the patient to complete the activity. If activity was not attempted, code reason: 7-Patient Refused. 9-Not Applicable-not attempted and the patient did not perform the activity before the current illness, exacerbation or injury. 10-Not Attempted due to Environmental Limitations-(lack of equipment, weather restraints, etc.). 88-Not Attempted due to Medical Conditions or Safety Concerns. Roll Left & Right (QC): 4 Sit to Lying (QC): 4 Lying to Sitting/Side of Bed(Q: 4 Sit to Stand (QC): 4 Chair/Mtc-rl-Hxuck Xfer(QC): 4 Weight Bearing Right Lower Extremity: Right Full Weight Bearing Left Lower Extremity: Left Weight Bearing/Tolerated Gait Training Does the Patient Walk?: Yes Distance: 110 feet Walk 10 feet (QC): 4 Walk 50 ft with 2 Turns(QC): 4 Gait Assistive Device: FWW Exercises Supine Ex: Ankle pumps, Quad Set, Glut sets Supine Reps: 20 Seated Therapy Exercises: Long arc quads, Hip flexion, Hamstring Curls, Hip abd/add Seated Reps: 10 Assessment Current Status: Good Progress Patient tolerated treatment better today. Performs all observed bed mobility and transfers with SBA. Patient ambulates 110 feet with FWW, with SBA and verbal cues for safety, progression, and conservation of energy. Patient performs LE therapeutic exercise in bed then in chair as listed above. Patient in chair post treatment with all needs met, nursing notified, call light in reach. PT Penitentiary Goals Penitentiary Goals PT Community Health Agent Goals Time Frame: Dec 09, 2022 Roll Left & Right (QC): 6 Sit to Lying (QC): 6 Lying-Sitting on Side/Bed(QC): 6 Sit to Stand (QC): 6 Chair/Ram-od-Cbbsv Xfer(QC): 6 Toilet Transfer (QC): 6 Walk 10 feet (QC): 6 Walk 50ft with 2 Turns (QC): 6 Walk 150 ft (QC): 6 PT Plan Treatment/Plan Treatment Plan: Continue Plan of Care Treatment Plan: Bed Mobility, Education, Functional Activity Nilsa, Functional Strength, Gait, Safety, Therapeutic Exercise, Transfers Treatment Duration: Dec 09, 2022 Frequency: 11 times per week Estimated Hrs Per Day: .5 hour per day Safety Risks/Education Patient Education: Gait Training, Transfer Techniques Teaching Recipient: Patient Teaching Methods: Demonstration, Discussion Response to Teaching: Verbalize Understanding, Return Demonstration Time Time In: 830 Time Out: 855 DATE: Nov 22, 2022 Total Billed Treatment Time: 25 Total Billed Treatment Visit, Kasia, LENA RUCKER PT Nov 22, 2022 09:58
--- NOTE | 2022-11-22 11:49 | Occupational Ther Daily Note ---
OT Current Status-Daily Note Subjective Up in recliner agreeable to OT Pain Numeric Pain Scale: 4 Location Body Site: Knee Pain Description: Ache, Pressure, Acute Mental Status/Objective Patient Orientation: Situation ADL-Treatment Therapy Code Descriptions/Definitions Functional [place] Measure: 0=Not Assessed/NA 4=Minimal Assistance 1=Total Assistance 5=Supervision or Setup 2=Maximal Assistance 6=Modified [place] 3=Moderate Assistance 7=Complete IndependenceSCALE: Activities may be completed with or without assistive devices. 5-Apuuchivko-veebmbv completes the activity by him/herself with no assistance from a helper. 5-Set-up or Clean-up Assistance-helper sets up or cleans up; patient completes activity. [place] assists only prior to or following the activity. 4-Supervision or Touching Assistance-helper provides verbal cues and/or touching/steadying and/or contact guard assistance as patient completes activity. Assistance may be provided throughout the activity or intermittently. 3-Partial/Moderate Assistance-helper does LESS THAN HALF the effort. [place] lifts, holds or supports trunk or limbs, but provides less than half the effort. 2-Substantial/Maximal Assistance-helper does MORE THAN HALF the effort. [place] lifts or holds trunk or limbs and provides more than half the effort. 7-Jxhkzjjkv-ifmigf does ALL the effort. Patient does none of the effort to complete the activity. Or, the assistance of 2 or more helpers is required for the patient to complete the activity. If activity was not attempted, code reason: 7-Patient Refused. 9-Not Applicable-not attempted and the patient did not perform the activity before the current illness, exacerbation or injury. 10-Not Attempted due to Environmental Limitations-(lack of equipment, weather restraints, etc.). 88-Not Attempted due to Medical Conditions or Safety Concerns. Eating (QC): 6 Oral Hygiene (QC): 5 (standing at bathroom sink w/ FWW) Shower/Bathe Self (QC): 7 Upper Body Dressing (QC): 5 Lower Body Dressing (QC): 5 On/Off Footwear: 5 Toileting Hygiene (QC): 5 Toilet Transfer (QC): 5 Patent required less time to performs tasks this session Education OT Patient Education: Energy conservation, Exercise program, Modified ADL techniques, Progress toward Goal/Update tx plan, Purpose of tx/functional activities, Reviewed precautions, Rehab process, Safety issues, Transfer techniques, Use of adapted equipment Teaching Recipient: Patient, Family (spouse present) Teaching Methods: Demonstration, Discussion Response to Teaching: Reinforcement Needed OT Bread Pan Greaser Goals Detention Goals Oral Hygiene (QC): 6 Toileting Hygiene (QC): 6 Shower/Bathe Self (QC): 5 Upper Body Dressing (QC): 6 Lower Body Dressing (QC): 6 On/Off Footwear (QC): 6 1=Demonstrate adherence to instructed precautions during ADL tasks. 2=Patient will verbalize/demonstrate understanding of assistive devices/modifications for ADL. 3=Patient will improve strength/tolerance for activity to enable patient to perform ADL's. OT Education/Plan Discharge Recommendations Plan/Recommendations: Continue POC Treatment Plan/Plan of Care Patient would benefit from OT for education, treatment and training to promote independence in ADL's, mobility, safety and/or upper extremity function for ADL's. Plan of Care: ADL Retraining, Functional Mobility, UE Funct Exercise/Act Treatment Duration: Nov 25, 2022 Frequency: 3 times per week (3-5 TIMES PER WEEK) Estimated Hrs Per Day: .25 hour per day Rehab Potential: Good remains up in recliner w/ spouse present to play cards Time Start Time: 11:11 Stop Time: 11:26 DATE: Nov 22, 2022 Total Time Billed (hr/min): 15 Billed Treatment Time ADL 15 min REVA HARRY OT Nov 22, 2022 11:49
[2022-11-22 13:32] VITALS: BP 124/71
--- NOTE | 2022-11-22 14:19 | Physical Therapy Daily Note ---
PT Daily Note-Current Subjective Patient asleep in bed upon PT arrival, agreeable to treatment. Reports no pain at this time. Pain Section J - Health Conditions 1. Rarely or not at all 2. Occasionally 3. Frequently 4. Almost constantly 8. Unable to answer Pain Effect on Sleep: 2 Pain Interference with Therapy: 3 Pain Interference w/Day-to-Day: 3 Mental Status Patient Orientation: Person Transfers SCALE: Activities may be completed with or without assistive devices. 2-Azcoxnyifc-ydbkfjo completes the activity by him/herself with no assistance from a helper. 5-Set-up or Clean-up Assistance-helper sets up or cleans up; patient completes activity. [place] assists only prior to or following the activity. 4-Supervision or Touching Assistance-helper provides verbal cues and/or touching/steadying and/or contact guard assistance as patient completes activity. Assistance may be provided throughout the activity or intermittently. 3-Partial/Moderate Assistance-helper does LESS THAN HALF the effort. [place] lifts, holds or supports trunk or limbs, but provides less than half the effort. 2-Substantial/Maximal Assistance-helper does MORE THAN HALF the effort. [place] lifts or holds trunk or limbs and provides more than half the effort. 4-Ghzfkuwgs-yrtizm does ALL the effort. Patient does none of the effort to complete the activity. Or, the assistance of 2 or more helpers is required for the patient to complete the activity. If activity was not attempted, code reason: 7-Patient Refused. 9-Not Applicable-not attempted and the patient did not perform the activity before the current illness, exacerbation or injury. 10-Not Attempted due to Environmental Limitations-(lack of equipment, weather restraints, etc.). 88-Not Attempted due to Medical Conditions or Safety Concerns. Roll Left & Right (QC): 4 Sit to Lying (QC): 4 Lying to Sitting/Side of Bed(Q: 4 Sit to Stand (QC): 4 Weight Bearing Right Lower Extremity: Right Full Weight Bearing Left Lower Extremity: Left Weight Bearing/Tolerated Gait Training Does the Patient Walk?: Yes Distance: 140' Walk 10 feet (QC): 4 Walk 50 ft with 2 Turns(QC): 4 Gait Assistive Device: FWW Assessment Current Status: Good Progress Patient tolerated treatment well. Performs all observed bed mobility and transfers with SBA. Patient ambulates 140 feet with FWW, with SBA and verbal cues for safety, progression, and conservation of energy. Patient in bed post treatment with all needs met, nursing notified, call light in reach. PT Metal Roofer Goals Prison Goals PT Metal Roofer Goals Time Frame: Dec 09, 2022 Roll Left & Right (QC): 6 Sit to Lying (QC): 6 Lying-Sitting on Side/Bed(QC): 6 Sit to Stand (QC): 6 Chair/Ewg-ke-Fjnio Xfer(QC): 6 Toilet Transfer (QC): 6 Walk 10 feet (QC): 6 Walk 50ft with 2 Turns (QC): 6 Walk 150 ft (QC): 6 PT Plan Treatment/Plan Treatment Plan: Continue Plan of Care Treatment Plan: Bed Mobility, Education, Functional Activity Nilsa, Functional Strength, Gait, Safety, Therapeutic Exercise, Transfers Treatment Duration: Dec 09, 2022 Frequency: 11 times per week Estimated Hrs Per Day: .5 hour per day Safety Risks/Education Patient Education: Gait Training, Transfer Techniques Teaching Recipient: Patient Teaching Methods: Demonstration, Discussion Response to Teaching: Verbalize Understanding, Return Demonstration Time Time In: 1357 Time Out: 1413 DATE: Nov 22, 2022 Total Billed Treatment Time: 16 Total Billed Treatment Visit, Gait LENA BLUE PT Nov 22, 2022 14:19
[2022-11-22 15:34] VITALS: BP 130/70
[2022-11-22 19:43] VITALS: BP 119/57
[2022-11-22 23:09] VITALS: BP 120/68
[2022-11-23] MEDS: LEVOTHYROXINE 75 MCG (LEVOTHROID) TABLET PO SCH (05:33)
[2022-11-23] MEDS: MULTIVIT W/MINERALS TAB (THERAGRAN M) PO SCH (05:33)
[2022-11-23] MEDS: HYDROcodone/APAP 7.5 MG/325 MG (LORTAB, LORCET PLUS) TABLET PO PRN ×2 (05:37→09:58)
[2022-11-23] MEDS: ASPIRIN E.C. 81 MG (ECOTRIN) TAB PO SCH (08:08)
[2022-11-23] MEDS: PANTOPRAZOLE 40 MG (PROTONIX) TAB PO SCH (08:08)
[2022-11-23] MEDS: DOCUSATE SODIUM 100 MG (COLACE) CAP PO SCH (08:08)
[2022-11-23 08:11] VITALS: BP 129/59
--- NOTE | 2022-11-23 08:54 | Physical Therapy Daily Note ---
PT Daily Note-Current Subjective Patient agrees to PT. Pain Section J - Health Conditions 1. Rarely or not at all 2. Occasionally 3. Frequently 4. Almost constantly 8. Unable to answer Pain Effect on Sleep: 2 Pain Interference with Therapy: 3 Pain Interference w/Day-to-Day: 3 Mental Status Patient Orientation: Normal For Age Transfers SCALE: Activities may be completed with or without assistive devices. 5-Vvieqctybs-khczwdr completes the activity by him/herself with no assistance from a helper. 5-Set-up or Clean-up Assistance-helper sets up or cleans up; patient completes activity. North assists only prior to or following the activity. 4-Supervision or Touching Assistance-helper provides verbal cues and/or touching/steadying and/or contact guard assistance as patient completes activity. Assistance may be provided throughout the activity or intermittently. 3-Partial/Moderate Assistance-helper does LESS THAN HALF the effort. North lifts, holds or supports trunk or limbs, but provides less than half the effort. 2-Substantial/Maximal Assistance-helper does MORE THAN HALF the effort. North lifts or holds trunk or limbs and provides more than half the effort. 2-Ritdibxnt-cotvxo does ALL the effort. Patient does none of the effort to complete the activity. Or, the assistance of 2 or more helpers is required for the patient to complete the activity. If activity was not attempted, code reason: 7-Patient Refused. 9-Not Applicable-not attempted and the patient did not perform the activity before the current illness, exacerbation or injury. 10-Not Attempted due to Environmental Limitations-(lack of equipment, weather restraints, etc.). 88-Not Attempted due to Medical Conditions or Safety Concerns. Sit to Lying (QC): 6 Sit to Stand (QC): 6 Chair/Ctb-oy-Quoye Xfer(QC): 6 Weight Bearing Right Lower Extremity: Right Full Weight Bearing Left Lower Extremity: Left Weight Bearing/Tolerated Gait Training Distance: 150' x 2 Walk 10 feet (QC): 6 Walk 50 ft with 2 Turns(QC): 6 Walk 150 ft (QC): 6 Gait Assistive Device: FWW slow, reciprocal pattern Stair Training Stair Training: Handrails/: 1 handrail #of Steps: 4 1 Step (curb) (QC): 4 4 Steps (QC): 4 Stairs: Pattern: Step to Exercises Supine Ex: Ankle pumps, Quad Set, Heel Slides Supine Reps: 12 Seated Therapy Exercises: Long arc quads Seated Reps: 15 Assessment Patient progressing with treatment plan and returned to bed with needs met. Much improved on this date with mobility and left knee ROM PT Residential Goals Residential Goals PT Hse Advisor Goals Time Frame: Dec 09, 2022 Roll Left & Right (QC): 6 Sit to Lying (QC): 6 Lying-Sitting on Side/Bed(QC): 6 Sit to Stand (QC): 6 Chair/Yck-zd-Ljnhy Xfer(QC): 6 Toilet Transfer (QC): 6 Walk 10 feet (QC): 6 Walk 50ft with 2 Turns (QC): 6 Walk 150 ft (QC): 6 PT Plan Treatment/Plan Treatment Plan: Discontinue PT Treatment Plan: Bed Mobility, Education, Functional Activity Nlisa, Functional Strength, Gait, Safety, Therapeutic Exercise, Transfers Treatment Duration: Dec 09, 2022 Frequency: 11 times per week Estimated Hrs Per Day: .5 hour per day Time Time In: 824 Time Out: 848 DATE: Nov 23, 2022 Total Billed Treatment Time: 24 Total Billed Treatment 1 visit GT 12 in FA 12 min IRENE SUAREZ PT Nov 23, 2022 08:54
--- NOTE | 2022-11-23 09:56 | Discharge Summary ---
Discharge Summary Hospital Course Hospital Course Date of Admission: Nov 20, 2022 at 11:40 Admission Diagnosis : Left Knee Primary Osteoarthritis Family Physician/Provider: Eunice Cui Physician Date of Discharge: 11/23/22 Discharge Diagnosis: [ Left Knee Primary Osteoarthritis s/p TKA] Hospital Course: [ On 11/20/22, patient underwent left total knee arthroplasty. Tolerated the procedure well and was transferred to the regular floor. On the day of surgery, began mechanical DVT prophylaxis and started to work with therapy. On POD #1, had significant difficulty with therapy and began chemical DVT prophylaxis. On POD #2, made very good progress with therapy and home health therapy arrangements were made. On POD #3, patient was ready for discharge home. ] Labs and Pending Lab Test: Laboratory Tests 11/22/22 11:05: Glucometer 105 Microbiology 11/20/22 MRSA Screen - Final, Complete MRSA not isolated Home Meds Active Reported Vitamin K2 100 Mcg Capsule 100 Mcg PO DAILY Vitamin D3 (Cholecalciferol (Vitamin D3)) 1,250 Mcg (54342 Unit) Capsule PO DAILY [vitamin b comp liq] Unknown Strength 1 Ml PO DAILY Tylenol (Acetaminophen) Unknown Strength Capsule Unknown Dose PO UD Turmeric (Turmeric Root Extract) 500 Mg Tablet 500 Mg PO TID Probiotic (Lactobacillus Combination No.4) Unknown Strength Capsule Unknown Dose PO BID Prevident (Sodium Fluoride) 1.1 % Sodium Fluoride Paste..ml. 100 Ml DT BID Omeprazole 40 Mg Capsule.dr 40 Mg PO DAILY Move Free Ultra Tablet (Cartilage/Collagen/Bor/Hyalur) 40 Mg-5 Mg-3.3 Mg Tablet 1 Each PO DAILY Mag-Oxide (Magnesium Oxide) Unknown Strength Tablet Unknown Dose PO Levothyroxine (Levothyroxine Sodium) 75 Mcg Capsule 75 Mcg PO DAILY Ketoconazole 2 % Cream..g. 15 Gm TP UD Hydrocodone-Acetamin 5-325 mg (Hydrocodone/Acetaminophen) 5 Mg-325 Mg Tablet 1 Tab PO TID PRN Vitamin C (Ascorbic Acid) 1,000 Mg Tablet.er 1,000 Mg PO DAILY Folic Acid Unknown Strength Tablet Unknown Dose PO Coral Calcium 1,000 mg Cap (Calcium/Mag Oxide/Vitamin D3) 185 Mg-50 Mg-100 Unit Capsule 1 Each PO BID Clotrimazole-Betamethasone Crm (Clotrimazole/Betamethasone Dip) 1 %-0.05 % Cream..g. 15 Gm TP UD Children's Chew Multivitamin (Pediatric Multivitamin No.17) 1 Each Tab.chew 1 Each PO DAILY Azo D-Mannose (D-Mannose) 500 Mg Capsule 500 Mg PO BID Assessment/Pt Instructions WBAT on left leg. Use walker. Dry dressing daily to incision; keep incision dry. F/U with Dr. Humble Esquivel in 2 weeks. Home health therapy for ROM/strengthening/gait training. Discharge Instructions Discharge Diet: No Restrictions Discharge Physical Examination Vital Signs Vital Signs Date Time Temp Pulse Resp B/P (MAP) Pulse Ox O2 Delivery O2 Flow Rate FiO2 11/23/22 08:11 36.8 98 19 129/59 (82) 93 Room Air 11/22/22 23:09 0.00 0.00 Extremity: Other (L Knee: Incision with minimal drainage otherwise intact, +DF of ankle, no s/s of DVT) Allergies: Coded Allergies: cephalexin (Verified Allergy, Unknown, diarrhea, 11/07/22) Discharge Summary Date of Admission Nov 20, 2022 at 11:40 Date of Discharge HUMBLE ESQUIVEL MD Nov 23, 2022 09:56
--- NOTE | 2022-11-23 09:57 | D/C HH Face to Face Order ---
D/C Face to Face Orders Instructions for Patient Via [facility], Patient Instructions/FollowUp: WBAT on left leg. Use walker. Dry dressing daily to incision; keep incision dry. F/U with Dr. Humble Esquivel in 2 weeks. Home health therapy for ROM/strengthening/gait training. Physician to follow Patient: Humble Esquivel Discharge Diet for Home: No Restrictions Patient Data-Allergies,Ht & Wt Patient Allergies: Coded Allergies: cephalexin (Verified Allergy, Unknown, diarrhea, 11/07/22) Home Health Need/Face to Face Date of Face to Face: Nov 23, 2022 Clinical Findings: Muscle weakness, Pain with ambulation I have seen Pt [id number]: Yes Discharged To: Home Diagnosis/Conditions: Left Knee Primary Osteoarthritis s/p TKA Patient is Homebound due to: Muscle weakness, Pain w/ambulation Homebound Status Due to the above stated illness, injury or surgical procedure (medical condition or diagnosis) and associated clinical findings, the patient is homebound because of his/her inability to leave home except with aid of a supportive device and/or person AND leaving the home requires a considerable and taxing effort or is medically contraindicated. Pt req the following assistanc: Walker Home Health Nursing Orders Home Health Services Order: Physical Therapy-Evaluate & Treat Home Health Infusion Therapy Line Start Date: Nov 20, 2022 Therapy Orders Therapy Specific Orders: Gait training, Increase strength/endurance, Restore ROM Certify Stmt I certify that this patient is under my care and that I, a nurse practitioner or a physician; a assistant vice president working with me, had a face to face encounter that - meets the physician face to face encounter requirements with this patient as dated. HUMBLE ESQUIVEL MD Nov 23, 2022 09:57
[2022-11-23] MEDS ORDERED: HYDR-34 PO (10:00)
[2022-11-23] MEDS ORDERED: ASPI-1238 PO (10:00)
[2022-11-23 12:01] VITALS: BP 133/61
[2022-11-23 13:13] VITALS: BP 133/61
== END 2022-11-23 13:20 | disposition home health service (06) ==
LOC: SDC 06:24 → EDSTATUS 07:30 → UNDOADMIN 11:40 → SDC 11:40 → 4TH 11:40 → UNDODISIN 11-23 13:20 → 4TH 11-23 13:20 → SDC 11-23 13:20
PROVIDERS: ATTEND Orthopaedic Surgery
DX: M17.0 Bilateral primary osteoarthritis of knee (principal)
CPT/HCPCS: 27447; 73560; 82947; 85014 ×2; 85018 ×2; 87081; 97110 ×2; 97116 ×3; 97162; 97166; 97530; 97535; C1713 ×2; C1776 ×3; 36415

== ENCOUNTER → 2022-12-05 | Outpatient (CLI) | payer MEDICARE, OTHER ==
[~2022-12-05] MED LIST changes: +ASPI-1238 PO; +HYDR-34 PO
== END ==
LOC: ORTHO 09:30
PROVIDERS: ATTEND Orthopaedic Surgery
DX: Z47.89 Encounter for other orthopedic aftercare (principal); M17.0 Bilateral primary osteoarthritis of knee

== ENCOUNTER → 2022-12-19 | Outpatient (CLI) | payer MEDICARE, OTHER ==
--- NOTE | 2022-12-19 17:09 | Diagnostic Imaging Report ---
KNEE, LEFT, 2 VIEWS (AP LAT) INDICATION: Postop surveillance after total knee arthroplasty COMPARISON: 11/20/2022 TECHNIQUE: 11/20/2022 FINDINGS: Left total knee arthroplasty has been performed. No acute or healing periprosthetic fracture. Small knee joint effusion. IMPRESSION: No complication associated with the total knee arthroplasty. Dictated by: Dictated on workstation # [id number]
== END ==
LOC: ORTHO 08:58
PROVIDERS: ATTEND Orthopaedic Surgery
DX: Z47.89 Encounter for other orthopedic aftercare (principal)
CPT/HCPCS: 73560

== ENCOUNTER → 2023-01-02 | Outpatient (CLI) | payer MEDICARE, OTHER ==
[~2023-01-02] MED LIST changes: +CYCL5TAB PO; +OXYC1TAB15 PO
== END ==
LOC: ORTHO 09:26
PROVIDERS: ATTEND Orthopaedic Surgery
DX: Z47.89 Encounter for other orthopedic aftercare (principal)

== ENCOUNTER 2023-01-03 05:27 | Outpatient (CLI) | payer MEDICARE, OTHER ==
[~2023-01-03] VITALS: Ht 165.1 cm; Wt 71.6 kg
[~2023-01-03 05:27] MED LIST changes: -CYCL5TAB PO; -OXYC1TAB15 PO
[2023-01-03] MEDS ORDERED: CYCL5TAB PO ×2 (12:34)
== END 2023-01-03 12:41 ==
LOC: PREOP 05:27
PROVIDERS: ATTEND Orthopaedic Surgery
DX: Z01.818 Encounter for other preprocedural examination (principal)

== ENCOUNTER 2023-01-05 08:43 | Day surgery (SDC) | payer MEDICARE, OTHER ==
[2023-01-05] VITALS (11 sets, daily range): BP systolic 133–167; BP diastolic 84–102
[~2023-01-05] VITALS: Ht 165.1 cm; Wt 71.6 kg
[~2023-01-05 08:43] MED LIST changes: +CYCL5TAB PO
[2023-01-05] MEDS ORDERED: LACTATED RINGERS 1,000 ML IV PRN (09:00)
[2023-01-05] MEDS ORDERED: fentaNYL INJ 100 MCG/2 ML AMP ONE (09:36)
[2023-01-05] MEDS ORDERED: proPOfol 200 MG/20 ML (DIPRIVAN) VIAL IV ONE (09:36)
[2023-01-05] MEDS ORDERED: ONDANSETRON 4 MG/2 ML (SDV) Z0FRAN ONE (09:36)
[2023-01-05] MEDS ORDERED: LIDOCAINE PF 2% 5 ML (XYLOCAINE) VIAL ONE (09:36)
--- NOTE | 2023-01-05 09:41 | Progress Note-Pre Operative ---
Pre-Operative Progress Note Date of Available H&P: January 02, 2023 Date H&P Reviewed: January 05, 2023 Time H&P Reviewed: 09:35 History & Physical: H&P Reviewed, Patient Examed, No changes noted Pre-Operative Diagnosis: Right Knee Arthrofibrosis ROBBIE KLEIN MD January 05, 2023 09:41
[2023-01-05] MEDS ORDERED: SEVOFLURANE (ULTANE) 15 ML INHAL SOLN ONE (09:53)
--- NOTE | 2023-01-05 09:55 | Operative Report - Ortho ---
Operative Report Surgeon (s)/Air Bag Buffer (s) Surgeon ROBBIE KLEIN MD Air Bag Buffer n/a Pre-Operative Diagnosis Left Knee Arthrofibrosis Post-Operative Diagnosis same Operative Report Date of Procedure: January 05, 2023 Name of Procedure Performed: Examination under Anesthesia and Manipulation of Left Knee Description & Findings After obtaining informed consent and marking the patient in the preoperative holding area, patient was taken to the operating room and general anesthesia was induced. The left knee was examined and demonstrated lacking 5 degrees of extension and 60 degrees of flexion. Manipulation was performed in flexion using constant steady pressure; followed by stretching in extension. After manipulation, the knee demonstrated 0 degrees extension and flexion demonstrated 120 degrees. Patient emerged from anesthesia without difficulty and tolerated the procedure well. Anesthesia Type General Estimated Blood Loss none Specimen(s) collected/removed None ROBBIE KLEIN MD January 05, 2023 09:55
[2023-01-05] MEDS ORDERED: OXYC1TAB15 PO ×2 (09:59)
[2023-01-05] MEDS ORDERED: morphine INJ 10 MG/ML 1ML (SYR OR VIAL) IVP ONE (10:00)
[2023-01-05] MEDS ORDERED: ONDANSETRON 4 MG/2 ML (SDV) Z0FRAN IVP PRN (10:00)
== END 2023-01-05 12:00 | disposition home or self-care (01) ==
LOC: SDC 08:43
PROVIDERS: ATTEND Orthopaedic Surgery
DX: M24.662 Ankylosis, left knee (principal); Z96.652 Presence of left artificial knee joint; Z28.310 Unvaccinated for COVID-19
CPT/HCPCS: 87081

== ENCOUNTER → 2023-01-16 | Outpatient (CLI) | payer MEDICARE, OTHER ==
[~2023-01-16] MED LIST changes: +OXYC1TAB15 PO
== END ==
LOC: ORTHO 08:25
PROVIDERS: ATTEND Orthopaedic Surgery
DX: Z47.89 Encounter for other orthopedic aftercare (principal)

== ENCOUNTER → 2023-02-06 | Outpatient (CLI) | payer MEDICARE, OTHER | LOC: ORTHO 13:04 | PROVIDERS: ATTEND Orthopaedic Surgery | DX: Z47.89 Encounter for other orthopedic aftercare (principal) ==

== ENCOUNTER → 2023-03-20 | Outpatient (CLI) | payer MEDICARE, OTHER | LOC: ORTHO 12:51 | PROVIDERS: ATTEND Orthopaedic Surgery | DX: M17.0 Bilateral primary osteoarthritis of knee (principal); Z96.652 Presence of left artificial knee joint | CPT/HCPCS: 99213 ==

== ENCOUNTER → 2023-05-23 | Outpatient (CLI) | payer MEDICARE, OTHER | LOC: ORTHO 10:55 | PROVIDERS: ATTEND Orthopaedic Surgery | DX: M25.562 Pain in left knee (principal); Z96.652 Presence of left artificial knee joint | CPT/HCPCS: 99213 ==